=== PATIENT | male | born 1965 | race African-American/Black ===

== ENCOUNTER 2022-08-24 13:34 | Inpatient (IN) | payer BC ==
[2022-08-24 15:42] LABS: BASO % 0.7 % (0-2.0); EOS % 0.4 % (0-4.5); HEMATOCRIT 39.6 % (35.4-49); HEMOGLOBIN 13.2 GM/dL (11.7-16.9); LYMPH % 17.7 % (8-40); MCH 28.8 pg (25.7-33.7); MCHC 33.3 g/dl (32.0-35.9); MEAN CELL VOLUME 86.4 fl (80-96); MEAN PLT VOLUME 7.7 fl (7.5-11.1); MONO % 8.6 % (3.8-10.2); NEUT % 72.6 % (42.8-82.8); PLATELET COUNT 235 10^3/uL (134-434); RBC 4.58 M/mm3 (4.00-5.60); RDW 13.8 % (11.9-15.9)
[2022-08-24] MEDS ORDERED: LISINOPRIL 10 MG TABLET PO ONE (16:13)
[2022-08-24 16:17] LABS: POTASSIUM 4.8 mmol/L (3.5-5.1)
[2022-08-24 16:19] LABS: CALCIUM 8.7 mg/dL (8.5-10.1)
[2022-08-24 16:20] LABS: BLOOD UREA NITROGEN 12.2 mg/dL (7-18)
[2022-08-24 16:24] LABS: BILIRUBIN,TOTAL 0.5 mg/dL (0.2-1); TOT PROT 7.5 g/dl (6.4-8.2)
[2022-08-24 16:27] LABS: N-TERMINAL BNP 451.1 pg/ml (5-125)
[2022-08-24] MEDS ORDERED: hydrALAZINE HCL 20 MG/ML VIAL IVPUSH ONE (17:47)
[2022-08-24] MEDS ORDERED: hydrALAZINE HCL 20 MG/ML VIAL ONE ×2 (18:21→21:16)
[2022-08-24] MEDS ORDERED: hydrALAZINE HCL 20 MG/ML VIAL IM PRN ×2 (19:05→19:18)
[2022-08-24 20:09] LABS: URINE APPEARANCE CLEAR; URINE BILIRUBIN NEGATIVE (NEGATIVE); URINE COLOR YELLOW; URINE GLUCOSE (UA) NEGATIVE (NEGATIVE); URINE KETONE 1+ (NEGATIVE); URINE LEUK ESTERASE NEGATIVE (NEGATIVE); URINE NITRITE NEGATIVE (NEGATIVE); URINE PROTEIN NEGATIVE (NEGATIVE); URINE UROBILINOGEN 0.2 mg/dL (0.2-1.0)
[2022-08-24] MEDS: hydrALAZINE HCL 20 MG/ML VIAL IVPUSH PRN (21:19)
[2022-08-24] MEDS: hydrALAZINE HCL 10 MG TABLET PO SCH (22:39)
[2022-08-25 01:32] VITALS: BMI 28.1
[2022-08-25] MEDS ORDERED: hydrALAZINE HCL 20 MG/ML VIAL IVPUSH ONE (03:21)
[2022-08-25] MEDS: hydrALAZINE HCL 10 MG TABLET PO SCH ×3 (06:15→21:56)
[2022-08-25 08:07] LABS: POTASSIUM 3.7 mmol/L (3.5-5.1)
[2022-08-25 08:17] LABS: CALCIUM 8.9 mg/dL (8.5-10.1)
[2022-08-25 08:18] LABS: ALBUMIN 3.9 g/dl (3.4-5.0); MAGNESIUM 2.2 mg/dL (1.8-2.4)
[2022-08-25 08:21] LABS: PHOSPHOROUS 2.6 mg/dL (2.5-4.9)
[2022-08-25 08:22] LABS: BILIRUBIN,TOTAL 0.7 mg/dL (0.2-1); TOT PROT 7.5 g/dl (6.4-8.2)
[2022-08-25 08:40] LABS: BASO % 0.5 % (0-2.0); EOS % 0.5 % (0-4.5); HEMATOCRIT 39.9 % (35.4-49); HEMOGLOBIN 13.4 GM/dL (11.7-16.9); LYMPH % 17.1 % (8-40); MCH 28.5 pg (25.7-33.7); MCHC 33.5 g/dl (32.0-35.9); MEAN CELL VOLUME 85.1 fl (80-96); MEAN PLT VOLUME 8.1 fl (7.5-11.1); MONO % 9.4 % (3.8-10.2); NEUT % 72.5 % (42.8-82.8); PLATELET COUNT 261 10^3/uL (134-434); RBC 4.69 M/mm3 (4.00-5.60); RDW 13.9 % (11.9-15.9); WHITE BLOOD COUNT 7.3 K/mm3 (4.0-10.0)
[2022-08-25] MEDS ORDERED: POTASSIUM CHLORIDE TABS 20 MEQ TABLET.ER (FP) PO ONE (09:02)
[2022-08-25] MEDS: ENOXAPARIN NA (PORCINE) 40 MG/0.4 ML DISP.SYRIN SQ SCH (09:04)
[2022-08-25] MEDS: HYDROCHLOROTHIAZIDE 25 MG TABLET (FP) PO SCH (09:04)
[2022-08-25] MEDS: LOSARTAN POTASSIUM 50 MG TABLET PO SCH (09:04)
[2022-08-25] MEDS: NEBIVOLOL 5 MG TABLET (FP) PO SCH (09:04)
[2022-08-25] MEDS: PANTOPRAZOLE 40 MG TABLET PO SCH (09:13)
[2022-08-25] MEDS: hydrALAZINE HCL 20 MG/ML VIAL IVPUSH PRN (11:15)
[2022-08-25] MEDS ORDERED: MAG HYDROX/AL HYDROX/SIMETH 30 ML UNIT-DOSE CUP PO PRN (11:30)
[2022-08-25] MEDS: NIFEdipine E.R. 30 MG TABLET PO SCH ×2 (13:38→21:56)
[2022-08-25] MEDS: LABETALOL HCL 20 MG/4 ML VIAL IVPB PRN ×2 (16:56→20:21)
[2022-08-25] MEDS: MELATONIN 5 MG TABLETS PO PRN (22:57)
[2022-08-26] MEDS: hydrALAZINE HCL 10 MG TABLET PO SCH ×3 (06:14→21:43)
[2022-08-26] MEDS: ENOXAPARIN NA (PORCINE) 40 MG/0.4 ML DISP.SYRIN SQ SCH (09:18)
[2022-08-26] MEDS: HYDROCHLOROTHIAZIDE 25 MG TABLET (FP) PO SCH (09:18)
[2022-08-26] MEDS: NEBIVOLOL 5 MG TABLET (FP) PO SCH (09:18)
[2022-08-26] MEDS: PANTOPRAZOLE 40 MG TABLET PO SCH (09:18)
[2022-08-26] MEDS: LOSARTAN POTASSIUM 50 MG TABLET PO SCH (09:18)
[2022-08-26] MEDS: NIFEdipine E.R. 30 MG TABLET PO SCH ×2 (09:18→21:43)
[2022-08-26] MEDS: hydrALAZINE HCL 20 MG/ML VIAL IVPUSH PRN (14:35)
[2022-08-26] MEDS: MELATONIN 5 MG TABLETS PO PRN (21:43)
[2022-08-27] MEDS: hydrALAZINE HCL 10 MG TABLET PO SCH ×3 (06:24→21:47)
[2022-08-27] MEDS: HYDROCHLOROTHIAZIDE 25 MG TABLET (FP) PO SCH (09:26)
[2022-08-27] MEDS: NEBIVOLOL 5 MG TABLET (FP) PO SCH (09:26)
[2022-08-27] MEDS: LOSARTAN POTASSIUM 50 MG TABLET PO SCH (09:26)
[2022-08-27] MEDS: PANTOPRAZOLE 40 MG TABLET PO SCH (09:26)
[2022-08-27] MEDS: NIFEdipine E.R. 30 MG TABLET PO SCH ×2 (09:26→21:47)
[2022-08-27] MEDS: ENOXAPARIN NA (PORCINE) 40 MG/0.4 ML DISP.SYRIN SQ SCH (09:26)
[2022-08-27] MEDS ORDERED: NEBIVOLOL 5 MG TABLET (FP) PO SCH (21:38)
[2022-08-27] MEDS: MELATONIN 5 MG TABLETS PO PRN (21:47)
[2022-08-28] MEDS: hydrALAZINE HCL 10 MG TABLET PO SCH ×2 (06:30→13:54)
[2022-08-28 09:01] LABS: POTASSIUM 3.8 mmol/L (3.5-5.1)
[2022-08-28 09:20] LABS: CALCIUM 8.9 mg/dL (8.5-10.1)
[2022-08-28 09:21] LABS: BLOOD UREA NITROGEN 18.2 mg/dL (7-18)
[2022-08-28 09:24] LABS: CREATININE 1.3 mg/dL (0.55-1.3)
[2022-08-28] MEDS: NIFEdipine E.R. 30 MG TABLET PO SCH (10:38)
[2022-08-28] MEDS: LOSARTAN POTASSIUM 50 MG TABLET PO SCH (10:38)
[2022-08-28] MEDS: PANTOPRAZOLE 40 MG TABLET PO SCH (10:38)
[2022-08-28] MEDS: HYDROCHLOROTHIAZIDE 25 MG TABLET (FP) PO SCH (10:38)
[2022-08-28] MEDS: ENOXAPARIN NA (PORCINE) 40 MG/0.4 ML DISP.SYRIN SQ SCH (10:38)
[2022-08-28 11:17] VITALS: TEMP 97.4
[2022-08-28] MEDS: LABETALOL HCL 20 MG/4 ML VIAL IVPB PRN (12:38)
[2022-08-28 13:40] VITALS: BP 161/95; PULSE 72; RESP 22
== END 2022-08-28 15:03 | disposition home or self-care (01) | DRG 305 ==
LOC: JER 13:34 → JERBED 18:01 → J4W 22:39 → OBSVTOIN 08-25 09:06
PROVIDERS: ADMIT Internal Medicine; ATTEND Family Medicine
DX: I16.0 Hypertensive urgency (principal); K21.9 Gastro-esophageal reflux disease without esophagitis; R01.1 Cardiac murmur, unspecified
CPT/HCPCS: 0241U-QW; 36415; 71045-TC-FY; 80048; 80053; 80061; 81003; 83735; 83880; 84100; 84443; 84484; 85025; 93005; 93010; 93306-TC; 99285-25; G0378